=== PATIENT | female | born 1990 | race Caucasian/White ===

== ENCOUNTER → 2019-07-24 | Outpatient (CLI) | payer BC | END | disposition home or self-care (01) | LOC: LAB 13:20 → EEVIPCON 13:20 | PROVIDERS: ATTEND Internal Medicine | DX: R19.00 Intra-abdominal and pelvic swelling, mass and lump, unspecified site (principal); E03.9 Hypothyroidism, unspecified; N39.0 Urinary tract infection, site not specified; R73.03 Prediabetes | CPT/HCPCS: 80053; 81001; 83036; 84436; 84443; 84480; 85025; 85651; 86304 ==